=== PATIENT | female | born 1995 | race Two or more races ===

== ENCOUNTER 2025-01-06 04:44 | Emergency (ER) | payer OTHER ==
[~2025-01-06] VITALS: Ht 149.9 cm; Wt 63.6 kg
[2025-01-06 06:06] VITALS: BP 111/65; PULSE 79; RESP 18; TEMP 97.3; O2SAT 99
[2025-01-06] MEDS: IBUPROFEN 600 MG TABLET PO ONE (06:22)
== END 2025-01-06 07:00 | disposition home or self-care (01) ==
LOC: EMS 04:44
DX: S86.912A Strain of unspecified muscle(s) and tendon(s) at lower leg level, left leg, initial encounter (principal); X58.XXXA Exposure to other specified factors, initial encounter; Y93.39 Activity, other involving climbing, rappelling and jumping off; Y92.89 Other specified places as the place of occurrence of the external cause; Y99.9 Unspecified external cause status
CPT/HCPCS: 29505; 99283